=== PATIENT | male | born 1985 | race Two or more races ===

== ENCOUNTER 2020-03-16 08:38 | Outpatient (REF) | payer BC, SELFPAY | END 2020-03-16 08:39 | disposition home or self-care (01) | LOC: HO.LAB 08:38 | PROVIDERS: Visit Provider Internal Medicine | DX: Z20.828 Contact with and (suspected) exposure to other viral communicable diseases (principal) | CPT/HCPCS: C9803; U0003 ==

== ENCOUNTER 2020-04-25 08:28 | Outpatient (REF) | payer BC, SELFPAY | END 2020-04-25 08:29 | disposition home or self-care (01) | LOC: HO.LAB 08:28 | PROVIDERS: Visit Provider Internal Medicine | DX: Z20.822 Contact with and (suspected) exposure to COVID-19 (principal) | CPT/HCPCS: 36415; C9803; U0003; U0005 ==

== ENCOUNTER 2022-05-29 13:54 | Emergency (ER) | payer BC, SELFPAY ==
[2022-05-29 14:52] VITALS: BP 140/81; PULSE 86; RESP 18; TEMP 36.4; O2SAT 100; BMI 39.0
--- NOTE | 2022-05-29 14:54 | ED_ITS ---
HPI - General Adult General Chief complaint: Abdominal Pain <RADHA Diaz - Last Filed: 05/29/22 14:55> Stated complaint: abd pain, vomiting <RADHA Diaz - Last Filed: 05/29/22 14:55> Time Seen by Provider: 05/29/22 16:29 <RADHA Diaz - Last Filed: 05/29/22 14:55> Source: patient <Margie Koch MD - Last Filed: 05/29/22 17:19> Mode of arrival: ambulatory <Margie Koch MD - Last Filed: 05/29/22 17:19> Limitations: no limitations <Margie Koch MD - Last Filed: 05/29/22 17:19> History of Present Illness HPI narrative: Emergency room complaining of abdominal cramping and diarrhea for 3 days. Patient states that he has had some body aches, chills. Patient tested himself for COVID at home 3 times, it was negative. However, patient states that throughout the next few days, all of his symptoms have gradually been getting better. Patient tried 2 doses of Bepto Bismal in the last 72 hours. <Margie Koch MD - Last Filed: 05/29/22 17:19> Related Data Home medications: Previous Rx's Medication Instructions Recorded loperamide 2 mg capsule (Imodium 2 mg PO Q4H PRN loose stool #14 05/29/22 A-D) caps <RADHA Diaz - Last Filed: 05/29/22 14:55> Allergies/adverse reactions: Allergies Allergy/AdvReac Type Severity Reaction Status Date / Time penicillin V Allergy Unknown Unknown Verified 05/29/22 14:51 Penicillins [PCN] AdvReac Unknown UNKNOWN Verified 05/29/22 14:51 <RADHA Diaz - Last Filed: 05/29/22 14:55> Review of Systems Review of Systems: Constitutional : No Weight loss, No Fever, No Chills, No Night Sweats, No Fatigue, No Malaise ENT/Mouth : No Hearing loss, No Ear Pain, No Nasal Congestion, No Sinus Pain, No Hoarseness, No sore throat, No Rhinorrhea, No Swallowing Difficulty Eyes: No Eye Pain, No Swelling, No Redness, No Foreign Body, No Discharge, No Vision Changes Cardiovascular : No Chest Pain, No SOB, No Dyspnea on Exertion, No Orthopnea, No Edema, No Palpitations Respiratory : No Cough, No Sputum, No Wheezing, No Smoke Exposure, No Dyspnea Gastrointestinal : No Nausea, No Vomiting, buying of diarrhea, abdominal cramping, no melena or hematochezia Genitourinary : no irregular bleeding, No Dysuria, No Urinary Frequency, No Hematuria, No Urinary Incontinence, No Urgency, No Flank Pain, No Urinary Flow Changes, No Hesitancy Musculoskeletal : No joint pain, No Myalgias, No Joint Swelling Skin : No Skin Lesions, No rash Neuro : No Weakness, No Numbness, No Paresthesias, No Loss of Consciousness, No Dizziness, No Headache Psych : No Anxiety/Panic, No Depression, No SI/HI/AH/VH, No Social Issues, Heme/Lymph: No Bruising, No Bleeding,No Lymphadenopathy Endocrine : No Polyuria, No Polydipsia, No Temperature Intolerance <Margie Koch MD - Last Filed: 05/29/22 17:19> FORMERLY [facility], [facility] Past Medical History Medical History: Medical History Epididymitis Inguinal pain Inguinal tenderness Vasitis <RADHA Diaz - Last Filed: 05/29/22 14:55> Surgical History: Surgical History H/O circumcision <RADHA Diaz - Last Filed: 05/29/22 14:55> Social History Social History: Social History Smoked in Last 30 Days: No Use of substances other than those prescribed or required for medical reasons: No Advance Directives: No Advance Directives Information Provided: No <RADHA Diaz - Last Filed: 05/29/22 14:55> Physical Exam ED Vital Signs: Vital Signs - 24 hr 05/29/22 14:52 05/29/22 16:44 Temperature 97.5 F 98.4 F Pulse Rate 86 83 Respiratory Rate 18 20 Blood Pressure 140/81 H 119/77 Pulse Oximetry 100 99 Oxygen Delivery Method Room Air Room Air BMI result Body Mass Index 39.0 <RADHA Diaz - Last Filed: 05/29/22 14:55> Vital Signs - 24 hr 05/29/22 14:52 05/29/22 16:44 Temperature 97.5 F 98.4 F Pulse Rate 86 83 Respiratory Rate 18 20 Blood Pressure 140/81 H 119/77 Pulse Oximetry 100 99 Oxygen Delivery Method Room Air Room Air BMI result Body Mass Index 39.0 <Margie Koch MD - Last Filed: 05/29/22 17:19> Const Other: Appearance: Alert. Oriented X3. No acute distress. Eyes: Pupils equal, round and reactive to light. ENT: Pharynx normal. Neck: Normal inspection. Neck supple. No lymph nodes noted. No crepitus CVS: Normal heart rate and rhythm. Pulses normal. Normal S1 and S2 Respiratory: No respiratory distress. Breath sounds normal. No Wheezing. No rales Abdomen: Soft and nontender. No rigidity. No distention. Skin: Skin warm and dry. Normal skin color. Normal skin turgor. Extremities: No lower extremity edema. No Lacerations. No Rash Neuro: Oriented X 3. No motor deficit. No sensory deficit. Moving all extremities. No slurred speech. CN 2 through 12 grossly intact Psych: calm, cooperative, normal affect <Margie Koch MD - Last Filed: 17:19> Course Course Course Narrative: RME performed by Ivon Levy PA-C. Patient is a 37 year old male presenting to the emergency department with abdominal pain and diarrhea x3 days. Patient [place] and is concerned that he got salmonella from [place]. Labs ordered. Patient placed back in the waiting room pending results and room availability. <RADHA Diaz - Last Filed: 05/29/22 14:55> Medications Administered Discontinued Medications Generic Name Dose Route Start Last Admin Trade Name Freq PRN Reason Stop Dose Admin Loperamide HCl 4 mg 05/29/22 16:37 05/29/22 16:46 Loperamide Hcl 2 Mg Capsule PO 05/29/22 16:38 4 mg ONCE ONE Administration <RADHA Diaz - Last Filed: 05/29/22 14:55> Medications Administered Discontinued Medications Generic Name Dose Route Start Last Admin Trade Name Freq PRN Reason Stop Dose Admin Loperamide HCl 4 mg 05/29/22 16:37 05/29/22 16:46 Loperamide Hcl 2 Mg Capsule PO 05/29/22 16:38 4 mg ONCE ONE Administration <Margie Koch MD - Last Filed: 05/29/22 17:19> Medical Decision Making Medical Decision Making [facility] Narrative: -patient's white blood cell count within normal limits. Chemistry is unremarkable -patient's abdominal exam is also unremarkable, no pain to palpation. -lipase negative -patient given the 1st dose of loperamide in the ED -patient likely having a viral syndrome. <Margie Koch MD - Last Filed: 05/29/22 17:19> Differential Diagnosis Differential Diagnoses: The differential diagnosis associated with the presentation includes (Gastroenteritis, colitis, viral syndrome) <Margie Koch MD - Last Filed: 05/29/22 17:19> Lab Data [facility] Lab Attestation statement: I reviewed the patient's lab results. <Margie Koch MD - Last Filed: 05/29/22 17:19> Result Diagrams: 05/29/22 15:15 05/29/22 15:15 <RADHA Diaz - Last Filed: 05/29/22 14:55> Labs: Lab Results 05/29/22 05/29/22 05/29/22 Range/Units 15:15 15:15 15:15 WBC 8.8 (4.8-10.8) X10*3/uL RBC 5.90 H (4.60-5.80) X10*6/uL Hgb 15.2 (14.0-18.0) g/dl Hct 46.5 (42.0-52.0) % MCV 78.8 L (80.0-98.0) fL MCH 25.8 L (27.0-33.0) pg MCHC 32.7 (31.0-36.0) g/dl RDW 14.0 (11.0-16.0) % Plt Count 240 (160-400) X10*3/uL MPV 9.2 L (9.4-12.4) fL Immature Gran % (Auto) 0.2 (0.0-0.4) % Neut % (Auto) 64.5 (45-73) % Lymph % (Auto) 21.2 (20-40) % Bosque % (Auto) 12.7 H (2-11) % Eos % (Auto) 0.9 (0-4) % Baso % (Auto) 0.5 (0-2) % Lymph # (Auto) 1.9 (1.2-4.9) X10*3/uL [place] # (Auto) 1.1 (0.1-1.2) X10*3/uL Eos # (Auto) 0.1 (0.0-0.4) X10*3/uL Baso # (Auto) 0.0 (0.0-0.2) X10*3/uL Abs Immat Gran (auto) 0.02 (0.00-0.03) X10*3/uL Absolute Neuts (auto) 5.7 (2.0-8.3) x10*3/uL Absolute Nucleated RBC 0.000 (0.0-0.012) X10*3/uL Nucleated RBC % (auto) 0.0 (0.0-0.2) /100WBC Sodium 135 (135-145) mmol/L Potassium 4.2 (3.3-5.1) mmol/L Chloride 100 (96-108) mmol/L Carbon Dioxide 24 (22-29) mmol/L Anion Gap 15 (12-20) BUN 16 (9-16) mg/dL Creatinine 0.96 (0.5-1.4) mg/dL Estim Creat Clear Calc 144.4 Estimated GFR > 60 Random Glucose 95 (60-115) mg/dL Calcium 9.3 (8.4-10.2) mg/dL Magnesium 2.2 (1.6-2.6) mg/dL Total Bilirubin 0.7 (0.0-1.0) mg/dL AST 17 (5-37) U/L ALT 22 (0-40) U/L Alkaline Phosphatase 68 (39-117) U/L Total Protein 7.4 (6.5-8.0) g/dL Albumin 4.3 (3.5-5.0) g/dL Lipase 14 (8-78) U/L COVID-19 (DOMINIQUE) Negative (Negative) COVID-19 Clin Com See Note <RADHA Diaz - Last Filed: 05/29/22 14:55> Lab Results 05/29/22 05/29/22 05/29/22 Range/Units 15:15 15:15 15:15 WBC 8.8 (4.8-10.8) X10*3/uL RBC 5.90 H (4.60-5.80) X10*6/uL Hgb 15.2 (14.0-18.0) g/dl Hct 46.5 (42.0-52.0) % MCV 78.8 L (80.0-98.0) fL MCH 25.8 L (27.0-33.0) pg MCHC 32.7 (31.0-36.0) g/dl RDW 14.0 (11.0-16.0) % Plt Count 240 (160-400) X10*3/uL MPV 9.2 L (9.4-12.4) fL Immature Gran % (Auto) 0.2 (0.0-0.4) % Neut % (Auto) 64.5 (45-73) % Lymph % (Auto) 21.2 (20-40) % Bosque % (Auto) 12.7 H (2-11) % Eos % (Auto) 0.9 (0-4) % Baso % (Auto) 0.5 (0-2) % Lymph # (Auto) 1.9 (1.2-4.9) X10*3/uL Bosque # (Auto) 1.1 (0.1-1.2) X10*3/uL Eos # (Auto) 0.1 (0.0-0.4) X10*3/uL Baso # (Auto) 0.0 (0.0-0.2) X10*3/uL Abs Immat Gran (auto) 0.02 (0.00-0.03) X10*3/uL Absolute Neuts (auto) 5.7 (2.0-8.3) x10*3/uL Absolute Nucleated RBC 0.000 (0.0-0.012) X10*3/uL Nucleated RBC % (auto) 0.0 (0.0-0.2) /100WBC Sodium 135 (135-145) mmol/L Potassium 4.2 (3.3-5.1) mmol/L Chloride 100 (96-108) mmol/L Carbon Dioxide 24 (22-29) mmol/L Anion Gap 15 (12-20) BUN 16 (9-16) mg/dL Creatinine 0.96 (0.5-1.4) mg/dL Estim Creat Clear Calc 144.4 Estimated GFR > 60 Random Glucose 95 (60-115) mg/dL Calcium 9.3 (8.4-10.2) mg/dL Magnesium 2.2 (1.6-2.6) mg/dL Total Bilirubin 0.7 (0.0-1.0) mg/dL AST 17 (5-37) U/L ALT 22 (0-40) U/L Alkaline Phosphatase 68 (39-117) U/L Total Protein 7.4 (6.5-8.0) g/dL Albumin 4.3 (3.5-5.0) g/dL Lipase 14 (8-78) U/L COVID-19 (DOMINIQUE) Negative (Negative) COVID-19 Clin Com See Note <Margie Koch MD - Last Filed: 05/29/22 17:19> Discharge Plan Discharge Clinical Impression: Diarrhea, Abdominal cramping <RADHA Diaz - Last Filed: 05/29/22 14:55> Patient Disposition: Home, Self-Care <RADHA Diaz - Last Filed: 05/29/22 14:55> Instructions: Acute Diarrhea (ED), Abdominal Pain (ED) <RADHA Diaz - Last Filed: 05/29/22 14:55> Additional Instructions: Please follow-up with your primary care physician tomorrow. If you have any worsening or new symptoms, please return to the emergency room or call 911 <RADHA Diaz - Last Filed: 05/29/22 14:55> Prescriptions: New loperamide [Imodium A-D] 2 mg capsule 2 mg PO Q4H PRN (Reason: loose stool) Qty: 14 0RF Rx Instructions: administer after each loose stool until symptoms controlled; do not exceed 8 mg per 24 hrs <RADHA Diaz - Last Filed: 05/29/22 14:55>
[2022-05-29 15:19] LABS: MANUAL DIFF FLAG NO
[2022-05-29 15:22] LABS: Basophils Percent Auto 0.5 % (0-2); Eosinophils Absolute Auto 0.1 X10*3/uL (0.0-0.4); Eosinophils Percent Auto 0.9 % (0-4); Hematocrit 46.5 % (42.0-52.0); Hemoglobin 15.2 g/dl (14.0-18.0); Imm Gran Abs Auto 0.02 X10*3/uL (0.00-0.03); Imm Gran Pct Auto 0.2 % (0.0-0.4); Lymphocytes Absolute Auto 1.9 X10*3/uL (1.2-4.9); Lymphocytes Percent Auto 21.2 % (20-40); Mean Corpuscular HGB Conc 32.7 g/dl (31.0-36.0); Mean Corpuscular Hemoglobin 25.8 pg (27.0-33.0); Mean Corpuscular Volume 78.8 fL (80.0-98.0); Mean Platelet Volume 9.2 fL (9.4-12.4); Monocytes Absolute Auto 1.1 X10*3/uL (0.1-1.2); Monocytes Percent Auto 12.7 % (2-11); Neutrophils Absolute Auto 5.7 x10*3/uL (2.0-8.3); Neutrophils Percent Auto 64.5 % (45-73); Platelet Count 240 X10*3/uL (160-400); White Blood Count 8.8 X10*3/uL (4.8-10.8)
[2022-05-29 15:38] LABS: Alanine Aminotransferase 22 U/L (0-40); Albumin Level 4.3 g/dL (3.5-5.0); Alkaline Phosphatase 68 U/L (39-117); Anion Gap 15 (12-20); Aspartate Amino Transferase 17 U/L (5-37); Bilirubin Total 0.7 mg/dL (0.0-1.0); Blood Urea Nitrogen 16 mg/dL (9-16); Calcium 9.3 mg/dL (8.4-10.2); Carbon Dioxide 24 mmol/L (22-29); Chloride 100 mmol/L (96-108); Creatinine Clr Calc Pharmacy 144.4; Estimated Glomerular Filt Rate > 60; Glucose Random 95 mg/dL (60-115); Magnesium 2.2 mg/dL (1.6-2.6); Potassium 4.2 mmol/L (3.3-5.1); Sodium 135 mmol/L (135-145); Total Protein 7.4 g/dL (6.5-8.0)
[2022-05-29 15:48] LABS: COVID-19 Test Negative (Negative); IDNOW Serial# BCCEAD1C
[2022-05-29 16:44] VITALS: BP 119/77; PULSE 83; RESP 20; TEMP 36.9; O2SAT 99
[2022-05-29] MEDS: Loperamide HCl 2 MG CAPSULE 4 MG PO (16:46)
[2022-05-29 17:05] LABS: Lipase 14 U/L (8-78)
== END 2022-05-29 17:27 | disposition home or self-care (01) ==
PROVIDERS: Physician Assistant Medical; Emergency Provider Emergency Medicine; PCP Internal Medicine
DX: R10.9 Unspecified abdominal pain (principal); M79.10 Myalgia, unspecified site; Z20.822 Contact with and (suspected) exposure to COVID-19; Z20.828 Contact with and (suspected) exposure to other viral communicable diseases; Z79.899 Other long term (current) drug therapy
CPT/HCPCS: 80053; 83690; 83735; 85025; 87635; 99283; 99284

== ENCOUNTER 2023-03-26 08:43 | Outpatient (AMB) | payer OTHER, SELFPAY ==
[2023-03-26 09:43] VITALS: BP 122/78; PULSE 78; O2SAT 98; BMI 41.8
--- NOTE | 2023-03-26 09:43 | MHC.OFFWIV ---
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 Patient states he started to notice erythema/irritation on the shaft of his penis approximately 1 week ago. There is some white discharge on the skin of the penis but he denies any discharge from his penis. Patient is monogamous with his for the past 10 years. FORMERLY [facility] Medical History Epididymitis Inguinal pain Inguinal tenderness Vasitis Surgical History H/O circumcision Social History Patient Tobacco Use Status: Never used Tobacco Review of Systems Const All systems reviewed & are unremarkable except as noted in HPI and below Reports no additional complaints Eyes Reports no additional complaints ENT Reports no additional complaints Card Reports no additional complaints Resp Reports no additional complaints GI Reports no additional complaints Reports no additional complaints Musc Reports no additional complaints Skin/Breast Reports system reviewed and no additional complaints, except as documented Neuro Reports no additional complaints Psych Reports no additional complaints Endo Reports no additional complaints Morteza/Lymph Reports no additional complaints Aller/Immun Reports no additional complaints Physical Exam Vital Signs: Last Vital Signs Pulse 78 03/26/23 09:43 BP 122/78 03/26/23 09:43 Pulse Ox 98 03/26/23 09:43 Oxygen Delivery Method Room Air 03/26/23 09:43 BMI result Body Mass Index 41.8 Const Other: Vital signs reviewed. Constitutional: Non-toxic appearing. No acute distress. Well-developed and well-nourished. HEENT: Normocephalic and atraumatic. Skin: There is erythema with thick white discharge on the shaft of the penis. Neck: Full and painless range of motion. No cervical lymphadenopathy. Cardio: Regular rate. No lower extremity edema. No JVD. Pulmonary: No respiratory distress. Gastrointestinal: Soft, nontender, and nondistended in all 4 quadrants. Musculoskeletal: Normal range of motion in joints throughout the body. No deformity or other signs of injury. Neuro: Alert and oriented x4. Cranial nerves 2-12 grossly intact. No focal deficits appreciated. Psych: Normal mood and affect. Assessment & Plan Assessment & Plan (1) Candidiasis of genitalia: Code(s): B37.49 - Other urogenital candidiasis Plan: 38-year-old male presenting to the office complaining of irritation of his penis. History and physical most consistent with a fungal infection of the skin of the penis. Patient sent home on nystatin cream. He was advised to follow-up here or proceed to the emergency room worsening symptoms. Medications: New nystatin 1 appl topical BID 30 grams 0RF Coding Level of Care Code New Pt Level 3 (67907) Diagnoses Candidiasis of genitalia B37.49
== END 2023-03-26 10:34 | disposition home or self-care (01) ==
PROVIDERS: PCP Internal Medicine; Visit Provider Physician Assistant Medical
DX: B37.49 Other urogenital candidiasis (principal)
CPT/HCPCS: 99203

== ENCOUNTER 2023-11-20 10:48 | Emergency (ER) | payer OTHER, SELFPAY ==
[2023-11-20 11:07] VITALS: BP 123/84; PULSE 74; RESP 16; TEMP 36.3; O2SAT 100; BMI 39.0
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
[2023-11-20 11:24] LABS: MANUAL DIFF FLAG NO
[2023-11-20 11:27] LABS: Basophils Percent Auto 0.5 % (0-2); Eosinophils Absolute Auto 0.3 X10*3/uL (0.0-0.4); Eosinophils Percent Auto 3.1 % (0-4); Hematocrit 45.4 % (42.0-52.0); Hemoglobin 15.1 g/dl (14.0-18.0); Imm Gran Abs Auto 0.03 X10*3/uL (0.00-0.03); Imm Gran Pct Auto 0.4 % (0.0-0.4); Lymphocytes Absolute Auto 2.9 X10*3/uL (1.2-4.9); Lymphocytes Percent Auto 35.4 % (20-40); Mean Corpuscular HGB Conc 33.3 g/dl (31.0-36.0); Mean Corpuscular Hemoglobin 26.8 pg (27.0-33.0); Mean Corpuscular Volume 80.5 fL (80.0-98.0); Mean Platelet Volume 8.9 fL (9.4-12.4); Monocytes Absolute Auto 0.7 X10*3/uL (0.1-1.2); Monocytes Percent Auto 8.8 % (2-11); Neutrophils Absolute Auto 4.2 x10*3/uL (2.0-8.3); Neutrophils Percent Auto 51.8 % (45-73); Platelet Count 289 X10*3/uL (160-400); Red Blood Count 5.64 X10*6/uL (4.60-5.80); Red Cell Distribution Width 14.6 % (11.0-16.0); White Blood Count 8.1 X10*3/uL (4.8-10.8)
[2023-11-20 11:42] LABS: Estimated Average Glucose 114 mg/dL; Hemoglobin A1c % 5.6 % (<6.0)
[2023-11-20 11:43] LABS: Alanine Aminotransferase 18 U/L (0-40); Albumin Level 4.6 g/dL (3.5-5.0); Alkaline Phosphatase 78 U/L (39-117); Anion Gap 13 (12-20); Aspartate Amino Transferase 17 U/L (5-37); Beta-Hydroxybutyrate 0.26 mmol/L (0.02-0.27); Bilirubin Total 0.5 mg/dL (0.0-1.0); Blood Urea Nitrogen 12 mg/dL (9-16); C Reactive Protein 0.31 mg/dL (< or = 0.50); Calcium 10.2 mg/dL (8.4-10.2); Carbon Dioxide 27 mmol/L (22-29); Chloride 102 mmol/L (96-108); Creatinine Clr Calc Pharmacy 149.1; Estimated Glomerular Filt Rate > 60; Glucose Random 90 mg/dL (60-115); Magnesium 2.4 mg/dL (1.6-2.6); Sodium 137 mmol/L (135-145); Total Protein 8.2 g/dL (6.5-8.0)
[2023-11-20] MEDS: diphenhydrAMINE HCL 25 MG CAPSULE 50 MG PO (12:19)
[2023-11-20 12:38] LABS: Erythrocyte Sedimentation Rate 21 MM/HR (0-15)
[2023-11-20 13:20] VITALS: BP 123/84; PULSE 74; RESP 16; TEMP 36.3; O2SAT 100
== END 2023-11-20 13:21 | disposition home or self-care (01) ==
PROVIDERS: Physician Assistant Medical; Emergency Provider Emergency Medicine Emergency Medical Services
DX: L29.9 Pruritus, unspecified (principal)
CPT/HCPCS: 36415; 80053; 82010; 82550; 83036; 83735; 85025; 85652; 86140; 99282; 99283

== ENCOUNTER 2024-01-30 08:23 | Emergency (ER) | payer OTHER, SELFPAY ==
--- NOTE | ~2024-01-30 | XR_ITS ---
EXAMINATION: XR CHEST CLINICAL INFORMATION: Pain. COMPARISON: None available. TECHNIQUE: 2 views of the chest were obtained. FINDINGS: The lungs are clear. The cardiomediastinal silhouette is normal in size. There is no pleural effusion or pneumothorax. No acute osseous abnormality. XR/XR chest 2V IMPRESSION: No acute cardiopulmonary findings. Electronically signed by: Ricardo Escobar MD 01/30/2024 09:12 AM [facility] [place]
[2024-01-30 08:24] VITALS: BP 146/75; PULSE 80; RESP 19; TEMP 36.6; O2SAT 98; BMI 39.0
--- NOTE | 2024-01-30 08:32 | ECG_ITS ---
Test Reason : abd pain Blood Pressure : / mmHG Vent. Rate : 081 BPM Atrial Rate : 081 BPM P-R Int : 120 ms QRS Dur : 088 ms QT Int : 364 ms P-R-T Axes : 030 054 035 degrees QTc Int : 422 ms Normal sinus rhythm Normal ECG No previous ECGs available Referred By: Elle Lee Electronically Signed By:Alvaro Carrillo
[2024-01-30 08:48] LABS: MANUAL DIFF FLAG NO
[2024-01-30 08:51] LABS: Basophils Absolute Auto 0.1 X10*3/uL (0.0-0.2); Basophils Percent Auto 0.7 % (0-2); Eosinophils Absolute Auto 0.3 X10*3/uL (0.0-0.4); Eosinophils Percent Auto 3.6 % (0-4); Hematocrit 43.7 % (42.0-52.0); Hemoglobin 14.4 g/dl (14.0-18.0); Imm Gran Abs Auto 0.03 X10*3/uL (0.00-0.03); Imm Gran Pct Auto 0.4 % (0.0-0.4); Lymphocytes Absolute Auto 2.5 X10*3/uL (1.2-4.9); Lymphocytes Percent Auto 36.4 % (20-40); Mean Corpuscular Hemoglobin 27.2 pg (27.0-33.0); Mean Corpuscular Volume 82.5 fL (80.0-98.0); Mean Platelet Volume 9.1 fL (9.4-12.4); Monocytes Absolute Auto 0.7 X10*3/uL (0.1-1.2); Monocytes Percent Auto 10.3 % (2-11); Neutrophils Absolute Auto 3.4 x10*3/uL (2.0-8.3); Neutrophils Percent Auto 48.6 % (45-73); Platelet Count 281 X10*3/uL (160-400); Red Cell Distribution Width 15.4 % (11.0-16.0); White Blood Count 6.9 X10*3/uL (4.8-10.8)
--- NOTE | 2024-01-30 09:03 | ED_ITS ---
HPI - General Adult General Chief complaint: General Medical Stated complaint: Bilateral rib pain Time Seen by Provider: 01/30/24 09:02 Source: patient Mode of arrival: ambulatory Limitations: no limitations History of Present Illness ED Provider: Ángel KEYS narrative: Patient is a 38-year-old male presenting to the emergency department with complaint of lower lateral rib pain for the past 2-3 weeks. States pain improves with ambulation/cardio. Feels it is aggravated when he sleeps on his side. Reports approximately 3 weeks ago he had an upper respiratory illness where he was coughing frequently. Denies recent fevers. States cough has improved. Denies fall or other trauma. Denies chest pain or shortness of breath. Reports family history of kidney disease and expresses concern that his symptoms may be related to his kidneys. Denies any urinary symptoms. 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 complaint: rib pain Onset (ago): week(s) Severity: moderate Quality: aching Pain Consistency: colicky Associated symptoms: denies other symptoms Treatments prior to arrival: none Related Data Previous Rx's ?Medication ?Instructions ?Recorded nystatin 100,000 unit/gram topical 1 appl topical BID #30 grams 03/26/23 cream lidocaine 5 % topical patch 1 patch topical DAILY #15 ea 01/30/24 Allergies Allergy/AdvReac Type Severity Reaction Status Date / Time penicillin V Allergy Unknown Unknown Verified 01/30/24 08:27 Penicillins [PCN] AdvReac Unknown UNKNOWN Verified 01/30/24 08:27 Review of Systems 2 Review of Systems: As per HPI Yes all other systems are reviewed and are negative Constitutional: Constitutional: Reports as per HPI [facility] Past Medical History Medical History Inguinal tenderness Inguinal pain Vasitis Epididymitis Surgical History H/O circumcision Social History Social History Patient Tobacco Use Status: Never used Tobacco Advance Directives: No Advance Directives Information Provided: Yes Do you have a plan to hurt others: No Plan Physical Exam ED Vital Signs: Vital Signs - 24 hr 01/30/24 08:24 Temperature 98 F Pulse Rate 80 Respiratory Rate 19 Blood Pressure 146/75 H Pulse Oximetry 98 Oxygen Delivery Method Room Air BMI result Body Mass Index 39.0 Vital signs have been reviewed and appear to be correct. Blood pressure normal. Heart rate normal. Respiratory rate normal. Temperature normal. Oxygen saturation normal. Const General: cooperative, healthy appearing and no acute distress Orientation/consciousness: oriented to person, oriented to place, oriented to time and patient oriented x3 Limitations: no limitations HENMT Head: Yes normocephalic and Yes atraumatic Ears: external ears normal General nose exam: Normal external nose present Face and sinus: Yes face symmetric Mouth: oropharynx normal and moist mucous membranes Throat: Yes uvula midline Eyes Pupils: Equal, round and reactive pupils present Neck Neck: Yes normal visual inspection and Yes supple Chest Chest palpation & inspection: normal inspection of the chest and tenderness rib (bilat) mid-axillary line involving the 9th rib, involving the 10th rib and involving the 11th rib Resp Effort & Inspection: normal respiratory effort and able to speak in complete sentences Auscultation: clear to auscultation bilaterally Cardio Rate: regular rate Rhythm: regular rhythm Heart sounds: S1 normal heart sound present and S2 normal heart sound present GI Inspection: Yes normal to inspection Palpation (GI): Soft to palpation, nontender, no guarding, no hernias and No Rebound tenderness present Auscultation: normoactive bowel sounds General: Yes no CVA tenderness Back/Spine/Pelvis Back: no CVA tenderness Skin General skin exam: elasticity normal and turgor normal Neuro General: oriented to person, oriented to place, oriented to time, patient oriented x3, moves all extremities, no focal motor deficits and CN's II-XI intact bilaterally Cranial nerves: Yes Equal, round and reactive pupils present Cognition (Neuro): normal cognition Extrem General: Yes full ROM, Yes no pedal edema and Yes no calf tenderness Psych Mental Status: mental status grossly normal Affect: normal affect Thought process: Normal thought process present Medical Decision Making Medical Decision Making MDM Narrative: Patient is a 38-year-old male presenting to the emergency department with complaint of lower lateral rib pain for the past 2-3 weeks. On exam patient is awake, A+Ox3, VS WNL, afebrile, normal neurological exam without focal deficits, physical exam findings as above. Given reported symptoms and physical exam findings, initial differential includes costochondritis, rib-tip syndrome, pneumonia. Do not suspect ACS, pancreatitis, cholecystitis, renal colic. Labs unremarkable. X-ray chest notable for no evidence of pneumonia. My interpretation is in agreement with the radiologist's interpretation. Results discussed with the patient at length and all questions answered. Discussed with patient that symptoms are most likely due to costochondritis. Will send prescription for lidocaine patches and advised patient to use NSAIDs. Follow-up with PCP. Return precautions discussed at bedside. Patient verbalized understanding of and agreement with plan. Differential Diagnosis Differential Diagnoses: The differential diagnosis associated with the presentation includes As per [facility]. Lab Data [facility] Lab Attestation statement: I reviewed the patient's lab results. As per [facility] 01/30/24 08:44 01/30/24 08:44 Labs: Lab Results 01/30/24 Range/Units 08:44 WBC 6.9 (4.8-10.8) X10*3/uL RBC 5.30 (4.60-5.80) X10*6/uL Hgb 14.4 (14.0-18.0) g/dl Hct 43.7 (42.0-52.0) % MCV 82.5 (80.0-98.0) fL MCH 27.2 (27.0-33.0) pg MCHC 33.0 (31.0-36.0) g/dl RDW 15.4 (11.0-16.0) % Plt Count 281 (160-400) X10*3/uL MPV 9.1 L (9.4-12.4) fL Immature Gran % (Auto) 0.4 (0.0-0.4) % Neut % (Auto) 48.6 (45-73) % Lymph % (Auto) 36.4 (20-40) % Scott % (Auto) 10.3 (2-11) % Eos % (Auto) 3.6 (0-4) % Baso % (Auto) 0.7 (0-2) % Lymph # (Auto) 2.5 (1.2-4.9) X10*3/uL Scott # (Auto) 0.7 (0.1-1.2) X10*3/uL Eos # (Auto) 0.3 (0.0-0.4) X10*3/uL Baso # (Auto) 0.1 (0.0-0.2) X10*3/uL Abs Immat Gran (auto) 0.03 (0.00-0.03) X10*3/uL Absolute Neuts (auto) 3.4 (2.0-8.3) x10*3/uL Absolute Nucleated RBC 0.000 (0.0-0.012) X10*3/uL Nucleated RBC % (auto) 0.0 (0.0-0.2) /100WBC Sodium 140 (135-145) mmol/L Potassium 4.5 (3.3-5.1) mmol/L Chloride 106 (96-108) mmol/L Carbon Dioxide 27 (22-29) mmol/L Anion Gap 12 (12-20) BUN 13 (9-16) mg/dL Creatinine 0.77 (0.5-1.4) mg/dL Estim Creat Clear Calc 178.3 Estimated GFR > 60 Random Glucose 100 (60-115) mg/dL Calcium 9.4 D (8.4-10.2) mg/dL Magnesium 2.1 (1.6-2.6) mg/dL Total Bilirubin 0.4 (0.0-1.0) mg/dL Direct Bilirubin 0.1 (0.0-0.5) mg/dL AST 22 (5-37) U/L ALT 28 (0-40) U/L Alkaline Phosphatase 69 (39-117) U/L Troponin I High Sens < 2.7 (<3.5-35.0) ng/L Total Protein 7.4 (6.5-8.0) g/dL Albumin 4.2 (3.5-5.0) g/dL Lipase 13 (8-78) U/L Independent Interpretation I performed an independent interpretation of an: Plain X-Ray Interpretation: No evidence of pneumonia on chest x-ray Radiology Impression Discussion of test interpretation with radiology: I have reviewed the radiologist's reading. Radiologist Impression: XR/XR chest 2V IMPRESSION: No acute cardiopulmonary findings. External Record Review External record reviewed: Inpatient record, Office record and Outpatient record Prescription Management I considered prescription management with: Pain Medication Discharge Plan Discharge Clinical Impression: Acute costochondritis Patient Disposition: Home, Self-Care Instructions: Costochondritis (ED), Thoracic Pain (ED) Additional Instructions: You were evaluated in the emergency department today for rib pain which is likely due to costochondritis, an inflammation of the muscles between your ribs. We recommend that you take 600 mg ibuprofen every 6 hours as needed for pain. You are also being prescribed topical lidocaine patches which you can wear for up to 12 hours in a 24 hour period. Do not apply heat directly over the patches. Your chest x-ray did not show evidence of pneumonia. Your labs were all normal. Return to the emergency department if you develop chest pain, palpitations, shortness of breath or difficulty breathing, or any other new or concerning symptoms. Follow-up with your primary care provider as needed. Prescriptions: New lidocaine 5 % adhesive patch,medicated 1 patch topical DAILY Qty: 15 0RF Rx Instructions: leave on most painful area for up to 12 hrs No Action nystatin 100,000 unit/gram cream 1 appl topical BID Qty: 30 0RF Print Language: [place]ovan
[2024-01-30 09:10] LABS: Alanine Aminotransferase 28 U/L (0-40); Albumin Level 4.2 g/dL (3.5-5.0); Alkaline Phosphatase 69 U/L (39-117); Anion Gap 12 (12-20); Aspartate Amino Transferase 22 U/L (5-37); Bilirubin Direct 0.1 mg/dL (0.0-0.5); Bilirubin Total 0.4 mg/dL (0.0-1.0); Blood Urea Nitrogen 13 mg/dL (9-16); Calcium 9.4 mg/dL (8.4-10.2); Carbon Dioxide 27 mmol/L (22-29); Chloride 106 mmol/L (96-108); Creatinine Clr Calc Pharmacy 178.3; Estimated Glomerular Filt Rate > 60; Glucose Random 100 mg/dL (60-115); Lipase 13 U/L (8-78); Magnesium 2.1 mg/dL (1.6-2.6); Potassium 4.5 mmol/L (3.3-5.1); Sodium 140 mmol/L (135-145); Total Protein 7.4 g/dL (6.5-8.0)
[2024-01-30 09:13] LABS: Troponin-I High Sensitivity < 2.7 ng/L (<3.5-35.0)
[2024-01-30 10:24] VITALS: BP 146/75; PULSE 80; RESP 19; TEMP 36.6; O2SAT 98
== END 2024-01-30 10:25 | disposition home or self-care (01) ==
PROVIDERS: Emergency Provider Emergency Medicine
DX: M94.0 Chondrocostal junction syndrome [Tietze] (principal); R07.81 Pleurodynia; R10.2 Pelvic and perineal pain; Z79.899 Other long term (current) drug therapy
CPT/HCPCS: 36415; 71046; 80048; 80076; 83690; 83735; 84484; 85025; 93005; 99283

== ENCOUNTER → 2024-01-30 08:32 | Outpatient (BNV) | payer OTHER, SELFPAY | PROVIDERS: Emergency Provider Emergency Medicine; Visit Provider Internal Medicine Cardiovascular Disease | DX: R10.9 Unspecified abdominal pain (principal) | CPT/HCPCS: 93010 ==